=== PATIENT | female | born 1990 | race Caucasian/White ===

== ENCOUNTER → 2017-06-08 | Emergency (ER) | payer SELFPAY ==
[~2017-06-08] VITALS: Ht 165.1 cm; Wt 56.7 kg
[~2017-06-08] MED LIST: IBUPROFEN 600 MG TABLET PO ONE
[2017-06-08 17:02] VITALS: BP 122/69
== END | disposition home or self-care (01) ==
LOC: ER 17:00
DX: S40.851A Superficial foreign body of right upper arm, initial encounter (principal); F32.9 Major depressive disorder, single episode, unspecified; F41.9 Anxiety disorder, unspecified; Z88.8 Allergy status to other drugs, medicaments and biological substances; X58.XXXA Exposure to other specified factors, initial encounter; Y93.89 Activity, other specified; Y92.89 Other specified places as the place of occurrence of the external cause; Y99.8 Other external cause status
CPT/HCPCS: 73080; 99284; A4606; Z7610